=== PATIENT | female | born 1965 | race Caucasian/White ===

== ENCOUNTER 2021-01-02 08:20 | Emergency (ER) | payer OTHER, SELFPAY ==
[2021-01-02 08:42] VITALS: BP 110/80; BP 120/64; PULSE 75; PULSE 79; RESP 16; TEMP 37.2; O2SAT 97; O2SAT 98; BMI 21.6
--- NOTE | 2021-01-02 08:42 | ECG_ITS ---
Test Reason : syncope Blood Pressure : / mmHG Vent. Rate : 072 BPM Atrial Rate : 072 BPM P-R Int : 130 ms QRS Dur : 082 ms QT Int : 394 ms P-R-T Axes : 013 013 022 degrees QTc Int : 431 ms Normal sinus rhythm RSR' or QR pattern in V1 suggests right ventricular conduction delay Otherwise normal ECG No previous ECGs available Referred By: Carrol Wasserman Electronically Signed By:BELINDA GARCIA MD
--- NOTE | 2021-01-02 08:43 | ED_ITS ---
HPI - General Adult General Chief complaint: Syncope Stated complaint: +COVID,WEAK,DIZZY,SYNC EP Time Seen by Provider: 01/02/21 08:34 Source: patient and EMS Mode of arrival: EMS Limitations: no limitations History of Present Illness HPI narrative: Patient comes emergency room complaining of generalized weakness and a syncopal episode. Patient states she was diagnosed with COVID-19 approximately 3 days ago. Patient states that she has been having generalized weakness for several weeks. Patient states that she has been on a diet trying to lose weight, states she lost quite a bit of weight. Patient denies chest pain, no shortness of breath, no palpitations. This morning, patient was trying to take a shower, patient was very weak, lightheaded, passed out. Related Data Allergies Allergy/AdvReac Type Severity Reaction Status Date / Time No Known Allergies Allergy Verified 01/02/21 08:41 Review of Systems Review of Systems: Constitutional : No Weight loss, No Fever, No Chills, No Night Sweats, No Fatigue, No Malaise ENT/Mouth : No Hearing loss, No Ear Pain, No Nasal Congestion, No Sinus Pain, No Hoarseness, No sore throat, No Rhinorrhea, No Swallowing Difficulty Eyes: No Eye Pain, No Swelling, No Redness, No Foreign Body, No Discharge, No Vision Changes Cardiovascular : No Chest Pain, No SOB, No Dyspnea on Exertion, No Orthopnea, No Edema, No Palpitations Respiratory : No Cough, No Sputum, No Wheezing, No Smoke Exposure, No Dyspnea Gastrointestinal : No Nausea, No Vomiting, No Diarrhea, No Constipation, No abdominal Pain, No Hematochezia, No Melena Genitourinary : no irregular bleeding, No Dysuria, No Urinary Frequency, No Hematuria, No Urinary Incontinence, No Urgency, No Flank Pain, No Urinary Flow Changes, No Hesitancy Musculoskeletal : No joint pain, No Myalgias, No Joint Swelling Skin : No Skin Lesions, No rash Neuro : No Weakness, No Numbness, No Paresthesias, complaining of once a couple episodes, dizziness, no headache Psych : No Anxiety/Panic, No Depression, No SI/HI/AH/VH, No Social Issues, Heme/Lymph: No Bruising, No Bleeding,No Lymphadenopathy Endocrine : No Polyuria, No Polydipsia, No Temperature Intolerance [facility] Social History Social History Advance Directives: No Advance Directives Information Provided: No Physical Exam Vital Signs: Vital Signs: Last Vital Signs Temp 99 F 01/02/21 08:42 Pulse 73 01/02/21 11:10 Resp 12 01/02/21 10:13 BP 125/73 01/02/21 11:10 Pulse Ox 98 01/02/21 10:13 Body Mass Index 21.6 Const: Other: Appearance: Alert. Oriented X3. No acute distress. Eyes: Pupils equal, round and reactive to light. ENT: Pharynx normal. Neck: Normal inspection. Neck supple. No lymph nodes noted. No crepitus CVS: Normal heart rate and rhythm. Pulses normal. Normal S1 and S2 Respiratory: No respiratory distress. Breath sounds normal. No Wheezing. No rales Abdomen: Soft and nontender. No rigidity. No distention. good BS x4 Skin: Skin warm and dry. Normal skin color. Normal skin turgor. Extremities: No lower extremity edema. No Lacerations. No Rash Neuro: Oriented X 3. No motor deficit. No sensory deficit. Moving all extermities. No slurred speech. Course Course Course Narrative: Patient feeling much better. Patient's dimer and troponin negative, EKG within normal limits. Orthostatic vitals negative. Medical Decision Making Lab Data Result diagrams: 01/02/21 09:20 01/02/21 09:20 Labs: Lab Results 01/02/21 01/02/21 01/02/21 Range/Units 09:20 09:20 09:20 WBC 3.2 L (4.8-10.8) X10*3/uL RBC 4.10 L (4.20-5.50) X10*6/uL Hgb 11.8 L (12.0-16.0) g/dl Hct 35.6 L (37-47) % MCV 86.8 (80-98) fL MCH 28.8 (27.0-33.0) pg MCHC 33.1 (31.0-35.0) g/dl RDW 13.5 (11.0-16.0) % Plt Count 201 (160-400) X10*3/uL MPV 10.7 (9.4-12.3) fL Immature Gran % (Auto) 0.3 (0.0-0.4) % Neut % (Auto) 66.4 (45-73) % Lymph % (Auto) 22.5 (20-40) % [place] % (Auto) 10.8 (2-11) % Eos % (Auto) 0.0 (0-4) % Baso % (Auto) 0.0 (0-2) % Lymph # (Auto) 0.7 L (1.2-4.9) X10*3/uL [place] # (Auto) 0.3 (0.1-1.2) X10*3/uL Eos # (Auto) 0.0 (0.0-0.4) X10*3/uL Baso # (Auto) 0.0 (0.0-0.2) X10*3/uL Abs Immat Gran (auto) 0.01 (0.00-0.03) X10*3/uL Absolute Neuts (auto) 2.1 (2.0-8.3) X10*3/uL Absolute Nucleated RBC 0.000 (0.0-0.012) X10*3/uL Nucleated RBC % (auto) 0.0 (0.0-0.2) /100WBC D-Dimer < 200 NG/ML Sodium 134 L (135-145) mmol/L Potassium 3.4 (3.3-5.1) mmol/L Chloride 101 (96-108) mmol/L Carbon Dioxide 25 (22-29) mmol/L Anion Gap 11 L (12-20) BUN 8 L (9-16) mg/dL Creatinine 0.63 (0.5-1.4) mg/dL Estim Creat Clear Calc 91.8 Estimated GFR > 60 Random Glucose 116 H (60-115) mg/dL Calcium 8.4 (8.4-10.2) mg/dL Total Bilirubin < 0.2 (0.0-1.0) mg/dL Direct Bilirubin < 0.2 (0.0-0.5) mg/dL AST 23 (5-31) U/L ALT 21 (0-31) U/L Alkaline Phosphatase 62 (39-117) U/L Troponin I High Sens (<3.5-17.0) ng/L Total Protein 6.4 L (6.5-8.0) g/dL Albumin 3.9 (3.5-5.0) g/dL Urine Color Urine Appearance Urine pH (5.0-8.0) Ur Specific [place] (1.005-1.025) Urine Protein (NEG-TRACE) MG/DL Urine Glucose (UA) (NEG) MG/DL Urine Ketones (NEG) MG/DL Urine Blood (NEG) Urine Nitrite (NEG) Ur Leukocyte Esterase (NEG) COVID-19 (JAZZY) (Negative) COVID-19 Clin Com 01/02/21 01/02/21 01/02/21 Range/Units 09:20 09:20 10:12 WBC (4.8-10.8) X10*3/uL RBC (4.20-5.50) X10*6/uL Hgb (12.0-16.0) g/dl Hct (37-47) % MCV (80-98) fL MCH (27.0-33.0) pg MCHC (31.0-35.0) g/dl RDW (11.0-16.0) % Plt Count (160-400) X10*3/uL MPV (9.4-12.3) fL Immature Gran % (Auto) (0.0-0.4) % Neut % (Auto) (45-73) % Lymph % (Auto) (20-40) % [place] % (Auto) (2-11) % Eos % (Auto) (0-4) % Baso % (Auto) (0-2) % Lymph # (Auto) (1.2-4.9) X10*3/uL [place] # (Auto) (0.1-1.2) X10*3/uL Eos # (Auto) (0.0-0.4) X10*3/uL Baso # (Auto) (0.0-0.2) X10*3/uL Abs Immat Gran (auto) (0.00-0.03) X10*3/uL Absolute Neuts (auto) (2.0-8.3) X10*3/uL Absolute Nucleated RBC (0.0-0.012) X10*3/uL Nucleated RBC % (auto) (0.0-0.2) /100WBC D-Dimer NG/ML Sodium (135-145) mmol/L Potassium (3.3-5.1) mmol/L Chloride (96-108) mmol/L Carbon Dioxide (22-29) mmol/L Anion Gap (12-20) BUN (9-16) mg/dL Creatinine (0.5-1.4) mg/dL Estim Creat Clear Calc Estimated GFR Random Glucose (60-115) mg/dL Calcium (8.4-10.2) mg/dL Total Bilirubin (0.0-1.0) mg/dL Direct Bilirubin (0.0-0.5) mg/dL AST (5-31) U/L ALT (0-31) U/L Alkaline Phosphatase (39-117) U/L Troponin I High Sens 3.7 (<3.5-17.0) ng/L Total Protein (6.5-8.0) g/dL Albumin (3.5-5.0) g/dL Urine Color YELLOW Urine Appearance CLEAR Urine pH 6.5 (5.0-8.0) Ur Specific [place] <= 1.005 (1.005-1.025) Urine Protein NEG (NEG-TRACE) MG/DL Urine Glucose (UA) NEG (NEG) MG/DL Urine Ketones NEG (NEG) MG/DL Urine Blood NEG (NEG) Urine Nitrite NEG (NEG) Ur Leukocyte Esterase NEG (NEG) COVID-19 (JAZZY) Positive A (Negative) COVID-19 Clin Com See Note Discharge Plan Discharge Clinical Impression: Vasovagal syncope Patient Disposition: Home, Self-Care Instructions: Syncope (ED) Additional Instructions: Please follow-up with your primary care physician tomorrow. If you have any worsening or new symptoms, please return to the emergency room or call 911
[2021-01-02 08:45] VITALS: O2SAT 97
[2021-01-02 09:29] LABS: MANUAL DIFF FLAG NO
[2021-01-02 09:31] LABS: Hematocrit 35.6 % (37-47); Hemoglobin 11.8 g/dl (12.0-16.0); Imm Gran Abs Auto 0.01 X10*3/uL (0.00-0.03); Imm Gran Pct Auto 0.3 % (0.0-0.4); Lymphocytes Absolute Auto 0.7 X10*3/uL (1.2-4.9); Lymphocytes Percent Auto 22.5 % (20-40); Mean Corpuscular HGB Conc 33.1 g/dl (31.0-35.0); Mean Corpuscular Hemoglobin 28.8 pg (27.0-33.0); Mean Corpuscular Volume 86.8 fL (80-98); Mean Platelet Volume 10.7 fL (9.4-12.3); Monocytes Absolute Auto 0.3 X10*3/uL (0.1-1.2); Monocytes Percent Auto 10.8 % (2-11); Neutrophils Absolute Auto 2.1 X10*3/uL (2.0-8.3); Neutrophils Percent Auto 66.4 % (45-73); Platelet Count 201 X10*3/uL (160-400); Red Cell Distribution Width 13.5 % (11.0-16.0); White Blood Count 3.2 X10*3/uL (4.8-10.8)
[2021-01-02 09:52] LABS: Alanine Aminotransferase 21 U/L (0-31); Albumin Level 3.9 g/dL (3.5-5.0); Alkaline Phosphatase 62 U/L (39-117); Anion Gap 11 (12-20); Aspartate Amino Transferase 23 U/L (5-31); Bilirubin Direct < 0.2 mg/dL (0.0-0.5); Bilirubin Total < 0.2 mg/dL (0.0-1.0); Blood Urea Nitrogen 8 mg/dL (9-16); Calcium 8.4 mg/dL (8.4-10.2); Carbon Dioxide 25 mmol/L (22-29); Chloride 101 mmol/L (96-108); Creatinine Clr Calc Pharmacy 91.8; Estimated Glomerular Filt Rate > 60; Glucose Random 116 mg/dL (60-115); Potassium 3.4 mmol/L (3.3-5.1); Sodium 134 mmol/L (135-145); Total Protein 6.4 g/dL (6.5-8.0)
[2021-01-02 09:59] LABS: COVID-19 Test Positive (Negative); IDNOW Serial# 9DD0AD1C; Troponin-I High Sensitivity 3.7 ng/L (<3.5-17.0)
[2021-01-02 10:13] VITALS: BP 141/77; PULSE 72; RESP 12; O2SAT 98
[2021-01-02 10:22] LABS: D Dimer < 200 NG/ML
[2021-01-02 10:27] LABS: Appearance Urine CLEAR; Color Urine YELLOW; Glucose Urine UA NEG (NEG); Leukocyte Esterase Urine NEG (NEG); Nitrite Urine NEG (NEG); PH 6.5 (5.0-8.0); Specific Gravity - Urine <= 1.005 (1.005-1.025); Urine Blood NEG (NEG); Urine Ketones NEG (NEG); Urine Protein NEG (NEG-TRACE)
[2021-01-02 11:05] VITALS: BP 134/67; PULSE 67
[2021-01-02 11:08] VITALS: BP 135/72; PULSE 72
[2021-01-02 11:10] VITALS: BP 125/73; PULSE 73
== END 2021-01-02 11:32 | disposition home or self-care (01) ==
PROVIDERS: Emergency Provider Emergency Medicine
DX: U07.1 COVID-19 (principal); R55 Syncope and collapse
CPT/HCPCS: 36415; 80048; 80076; 81003; 84484; 85025; 85379; 87635; 93005; 99283; 99285

== ENCOUNTER → 2022-08-26 14:59 | Outpatient (REF) | payer OTHER, SELFPAY ==
--- NOTE | ~2022-08-26 | US_ITS ---
EXAMINATION: US RETROPERITONEAL LIMITED (RENAL ONLY) CLINICAL INFORMATION: Cyst of kidney, acquired. COMPARISON: None available. TECHNIQUE: Real-time imaging of the kidneys. FINDINGS: RIGHT KIDNEY: 11.7 x 6.1 x 5.5 cm (SAG x AP x TRV). The kidney is normal in size, contour, and echogenicity. Renal cortical thickness is normal. No focal parenchymal lesions or hydronephrosis. There are tiny nonobstructing calculi in the lower pole measured 0.5 x 0.3 x 0.5 cm in interpolar region measures 0.3 x 0.2 x 0.2 cm in the upper pole 0.3 x 0.2 x 0.3 cm. LEFT KIDNEY: 11.5 x 5.1 x 6.0 cm (SAG x AP x TRV). The kidney is normal in size, contour, and echogenicity. Renal cortical thickness is normal. No focal parenchymal lesions. There is mild hydronephrosis. There is interpolar 0.3 x 0.3 x 0.4 cm stone US/US renal BI IMPRESSION: Bilateral nephrolithiasis and mild hydronephrosis on the left.
--- NOTE | 2022-08-26 15:03 | CA_ITS ---
Transthoracic Echocardiogram Patient (Last, First, Middle): Maria D Dutton, Gender: Female Date of : 1965 Age: 57 Procedure Date: 08/26/2022 Procedure Type: Transthoracic Echocardiogram Location: OP Height: 157.48 cm Weight: 67.59 kg BSA: 1.69 m2 Heart Rate: 89 bpm BP: 120 / 70 mmHg Funnel Coater: SB Referring MD: Uriel Mclaughlin [facility] Symptoms: R01.1 - Cardiac murmur, unspecified Study Quality: Adequate ECG Rhythm: Sinus Conclusions: - The left ventricular systolic function is normal. The calculated ejection fraction is 65% by biplane method. - No obvious valvular pathology seen on this study. Findings Left Ventricle Normal left ventricular cavity size. There is normal left ventricular wall thickness. The left ventricular systolic function is normal. The calculated ejection fraction is 65% by biplane method. There is no evidence of regional wall motion abnormalities. Diastolic function is normal for age. LV peak GLS -18.4%. Right Ventricle Normal right ventricular cavity size and systolic function. Atria Both atria are normal in size. Aortic Valve There is a normal trileaflet aortic valve. There is mild calcification of the aortic valve. There is no aortic valve stenosis. There is no aortic valve regurgitation. Mitral Valve The mitral valve appears normal. There is no mitral valve regurgitation. There is no mitral valve stenosis. Pulmonic Valve The pulmonic valve is likely normal. Tricuspid Valve Normal tricuspid valve structure. There is mild tricuspid valve regurgitation. There is no evidence of pulmonary hypertension. Great Vessels The asc aorta is normal in size. Venous The inferior vena cava is normal in size and collapses greater than 50% with inspiration. Pericardium/Pleural There is no evidence of pericardial effusion. Prior Study Comparison No prior study available for comparison. Recommendations, Care & Conclusions No obvious valvular pathology seen on this study. Measurements 2D Linear Measurements IVSd: 0.90 0.6-0.9/0.6-1.0 cm LVIDd: 5.09 3.9-5.3/4.2-5.9 cm LVIDd Index: 3.01 2.4-3.2/2.2-3.1 cm/m2 LVIDs: 2.86 2.0-3.6 cm LVPWd: 0.71 0.7-1.1 cm LA Diam: 3.40 2.7-3.8/3.0-4.0 cm LAIDs Index: 2.01 1.5-2.3 cm/m2 LV Mass: 176.21 67-162/88-224 g LV Mass Index: 104.26 43-95/49-115 g/m2 LVOT Diam: 1.90 3.0+(-)1.3 cm 2D Systolic Function EF 4C: 62.90 >55% EF 2C: 67.20 >55% EF BiP: 64.80 >55% Mitral Valve MV Pk E: 0.97 MV PK A: 0.86 MV Decel Time: 163.00 E/A: 1.10 E'Lateral: 8.70 E'Medial: 8.38 E/E' Med: 11.60 E/E' Lat: 11.10 PHT: 48.00 MVA PHT: 4.58 Decel [place]: 5.95 Aortic Valve AoV Pk Hilario: 1.79 AoV Mn Hilario: 1.17 AoV VTI: 0.40 AoV Pk Grad: 13.00 Aov Mn Grad: 7.00 REYES Cont.VTI: 1.67 LVOT LVOT Pk Hilario: 1.07 LVOT Mn Hilario: 0.71 LVOT VTI: 0.24 LVOT Pk Grad: 5.00 LVOT Mn Grad: 3.00 LVOT Diam: 1.90 LVOT Area: 2.84 Diastolic Function MV Pk E: 0.97 MV Pk A: 0.86 E/A: 1.10 E'Medial: 8.38 E/E' Med: 11.60 E' Laterial: 8.70 E/E' Lat: 11.10 Right Ventricle TAPSE (mm): 25.60 TVS' Hilario: 14.90 Tricuspid Valve TR Pk Hilario: 2.63 TR Pk Grad: 28.00 RA Press: 3.00 RVSP: 31.00 Great Vessels Aorta Sinus of Valsalva: 2.60 2.0-3.5 cm Ao Asc: 2.80 2.1-3.4 cm Pulmonary Valve PV Pk Hilario: 1.16 Peak PV Grad: 5.00 Updated in Other Vendor System with Status of Final Deonte Brandt MD electronically signed on 08/28/2022 2:01:22 PM with status of Final
== END ==
LOC: HO.CARD 14:59
PROVIDERS: PCP Nurse Practitioner Family; Visit Provider Nurse Practitioner Family
DX: R01.1 Cardiac murmur, unspecified (principal); N28.1 Cyst of kidney, acquired
CPT/HCPCS: 76775; 93306; 93356

== ENCOUNTER → 2022-09-07 07:55 | Outpatient (BNVA) | payer OTHER, SELFPAY | PROVIDERS: PCP Nurse Practitioner Family; Visit Provider Nurse Practitioner Family ==

== ENCOUNTER 2022-09-07 09:07 | Outpatient (REF) | payer OTHER, SELFPAY | END 2022-09-07 09:08 | disposition home or self-care (01) | LOC: HO.HMGCLDS 09:07 | PROVIDERS: PCP Nurse Practitioner Family; Visit Provider Nurse Practitioner Family | DX: Z00.00 Encounter for general adult medical examination without abnormal findings (principal); Z13.220 Encounter for screening for lipoid disorders; Z13.29 Encounter for screening for other suspected endocrine disorder | CPT/HCPCS: 36415; 80053; 80061; 81003; 84443; 85025 ==

== ENCOUNTER 2022-09-22 15:02 | Outpatient (AMB) | payer OTHER, SELFPAY ==
--- NOTE | 2022-09-22 15:05 | MHC.OFFVIS ---
Intake Intake Visit Reasons: Unspecified hydronephrosis Intake Note: New Patient presents for initial visit hydronephrosis Urology Medication: none Blood Thinner: none Facing Slitter Required: No Accompanied by: Self / Same As Patient Allergies acetaminophen [From Percocet] Adverse Reaction (Mild, Verified 09/24/22 10:23) upset stomach oxycodone [From Percocet] Adverse Reaction (Mild, Verified 09/24/22 10:23) upset stomach Medication List - Last Reconciled 09/24/22 by RUBA Bustamante bisacodyl (Dulcolax (bisacodyl)) 10 mg (2 x 5 mg) PO ONCE 1 day docusate sodium 100 mg PO DAILY polyethylene glycol 3350 (Miralax) 238 grams PO ONCE pyridoxine (vitamin B6) 100 mg PO DAILY 90 days HPI HPI Comments History of Present Illness Details Maria D is a very pleasant 57-year-old female patient of Dr. Glaser. She presents to the office today as a new patient for nephrolithiasis and renal cyst. In discussion with the patient she reports to be doing and feeling well. She reports following up with her PCP for her longstanding history of renal cyst at which time a ultrasound was ordered for further assessment evaluation. These results were reviewed with the patient today. Right kidney with no lesions or hydronephrosis noted. There are nonobstructing calculi in the lower pole measuring 5 mm, 2 mm, and 3 mm. Left kidney with no lesions. There is mild hydronephrosis. There is a 4 mm nonobstructing stone. When asked patient denies any previous history of nephrolithiasis. Discussed at length potential causes for nephrolithiasis as well as hydronephrosis. When asked patient denies any issues with her urination. She denies urinary urgency, urinary frequency, incontinence, nocturia, hematuria, dysuria, foul smelling urine, changes to urinary stream, flank pain, fever, and or chills. She is happy with her current voiding parameters. BUN 12/26--11, 09/27--13 Creatinine 12/26--8, 09/27--0.66 In office urinalysis results reviewed with the patient today. When asked patient reports to be drinking plenty of water daily. [facility] Surgical History Hx of cholecystectomy Hx of colonoscopy Family History Brother Mental health disorder Social History Housing: House Patient Tobacco Use Status: Former Tobacco user Quit Date: 21 years ago e-Cigarette/Vaping Use: Never Used Second Hand Smoke Exposure: No service: No Current occupational status: unemployed Cognitive needs: No Hearing needs: No Vision needs: No Review of Systems Const All systems reviewed & are unremarkable except as noted in HPI and below Reports no additional complaints Eyes Reports no additional complaints ENT Reports no additional complaints Card Reports no additional complaints Resp Reports no additional complaints GI Reports no additional complaints Reports as per HPI Musc Reports no additional complaints Neuro Reports no additional complaints Psych Reports no additional complaints Endo Reports no additional complaints Jayjay/Lymph Reports no additional complaints Aller/Immun Reports no additional complaints Physical Exam Const General: cooperative, healthy appearing, comfortable, no acute distress, well developed, alert and awake Orientation/consciousness: patient oriented x3 Limitations: no limitations HEENT Head: Yes normal to inspection, Yes normocephalic and Yes atraumatic Ears: hearing grossly normal bilaterally Eyes General: appearance normal, both eyes and all related structures Neck Neck: Yes normal visual inspection and Yes trachea midline Chest Chest palpation & inspection: normal inspection of the chest Resp Effort & Inspection: normal respiratory effort and able to speak in complete sentences Cardio Rate: regular rate GI Inspection: Yes normal to inspection General: Yes no CVA tenderness Back/Spine/Pelvis Back: no CVA tenderness Skin General skin exam: no rashes or lesions noted Neuro General: patient oriented x3 Extrem General: Yes normal to inspection Psych Appearance: grossly normal and well kempt Mental Status: mental status grossly normal Speech and movement: Normal speech and movement present and Clear speech present Affect: normal affect Attitude: cooperative Thought process: Normal thought process present Thought content: Normal thought content present Insight: Good insight present (Psych) Judgement: Good judgement present (Psych) Results AMB Urinalysis, Automated UA Leukoctes 0 Melissa/uL Last Edit by [employer] Link on 09/22/22 15:28 UA Nitrite Negative Last Edit by [employer] on 09/22/22 15:28 UA Urobilinogen 0.2 mg/dL Last Edit by [employer] Link on 09/22/22 15:28 UA Protein 0 mg/dL Last Edit by [employer] Link on 09/22/22 15:28 UA pH 5.5 Last Edit by [employer] Link on 09/22/22 15:28 UA Blood 25 Elvin/uL Last Edit by [employer] Link on 09/22/22 15:28 UA Specific [place] 1.030 Last Edit by [employer] Link on 09/22/22 15:28 UA Ketone Negative Last Edit by [employer] Link on 09/22/22 15:28 UA Bilirubin 0 mg/dL Last Edit by [employer] Link on 09/22/22 15:28 UA Glucose 0 mg/dL Last Edit by [employer] Link on 09/22/22 15:28 Results Reviewed Results Reviewed: Laboratory Last Values Urine pH (Auto) 5.5 09/22/22 15:10 Specific [place] (Auto) 1.030 09/22/22 15:10 Urine Protein (Auto) 0 mg/dL 09/22/22 15:10 Glucose (UA)(Auto) 0 mg/dL 09/22/22 15:10 Urine Ketones (Auto) Negative 09/22/22 15:10 Urine Blood (Auto) 25 Elvin/uL 09/22/22 15:10 Urine Nitrite (Auto) Negative 09/22/22 15:10 Urine Bilirubin (Auto) 0 mg/dL 09/22/22 15:10 Urine Urobilinogen (Auto) 0.2 mg/dL 09/22/22 15:10 Leukocyte Esterase (Auto) 0 Melissa/uL 09/22/22 15:10 Date of Service: 08/26/22 EXAMINATION: US RETROPERITONEAL LIMITED (RENAL ONLY) FINDINGS: RIGHT KIDNEY: 11.7 x 6.1 x 5.5 cm (SAG x AP x TRV). The kidney is normal in size, contour, and echogenicity. Renal cortical thickness is normal. No focal parenchymal lesions or hydronephrosis. There are tiny nonobstructing calculi in the lower pole measured 0.5 x 0.3 x 0.5 cm in interpolar region measures 0.3 x 0.2 x 0.2 cm in the upper pole 0.3 x 0.2 x 0.3 cm. LEFT KIDNEY: 11.5 x 5.1 x 6.0 cm (SAG x AP x TRV). The kidney is normal in size, contour, and echogenicity. Renal cortical thickness is normal. No focal parenchymal lesions. There is mild hydronephrosis. There is interpolar 0.3 x 0.3 x 0.4 cm stone IMPRESSION: Bilateral nephrolithiasis and mild hydronephrosis on the left. Assessment & Plan Assessment & Plan (1) Bilateral renal stones: Code(s): N20.0 - Calculus of kidney (2) Hydronephrosis determined by ultrasound: Code(s): N13.30 - Unspecified hydronephrosis Plan In office urinalysis results reviewed with the patient today; as noted above. Recent renal imaging results reviewed with the patient today. Discussed at length potential causes for nephrolithiasis. Discussed obtaining 24 hour urine and labs (magnesium, phosphorus, BMP, calcium, PTH, uric acid, andvitamin-D) for further assessment evaluation Discussed at length potential causes for mild hydronephrosis noted via ultrasound discussed further workup with nuclear renal scan versus surveillance monitoring Discussed the importance of drinking plenty of water daily. Educated instructed to add 1 oz of lemon juice to water daily. Start vitamin B6 as discussed and prescribed. Patient reports to be happy with current voiding parameters Follow-up in 3-4 months with 24 hour urine and labs to be completed prior; or sooner with any issues, concerns, and or questions. Orders: Orders Magnesium 09/22/22 N20.0 - Calculus of kidney Phosphorus 09/22/22 Z87.442 - Personal history of urinary calculi Basic Metabolic Panel 09/22/22 N20.0 - Calculus of kidney Calcium 09/22/22 N20.0 - Calculus of kidney PTHI 09/22/22 N20.0 - Calculus of kidney Uric Acid 09/22/22 N20.0 - Calculus of kidney Vitamin D 25-OH Total 09/22/22 N20.0 - Calculus of kidney URORISK 09/22/22 N20.0 - Calculus of kidney AMB Urinalysis Automated 09/22/22 Z13.9 - Encounter for screening, unspecified Medications: New pyridoxine (vitamin B6) 100 mg PO DAILY 90 days 90 tabs 1RF N20.0 - Calculus of kidney Patient Instructions: The patient had an opportunity to ask questions regarding the treatment plan. All questions were answered. Physical exam, labs, and imaging were discussed and reviewed in detail. As well as risks, benefits, and discussion of treatment choices. No major barriers to understanding were identified. The patient expressed understanding and agreement with the above treatment plan. The patient was made aware they should contact our office by phone for worsening of their current condition, the appearance of new symptoms, or with any questions or concerns. Compliance is encouraged with any medications and follow up testing that is ordered. It is a privilege to be allowed the opportunity to participate in? your urological care.? Again, if you have any questions or concerns If you have any questions or concerns please do not hesitate to contact me. The office is [phone]. This note is constructed using voice recognition software. While every effort has been made to ensure accuracy turn down man errors may have been included. Yours sincerely, RUBA Bustamante Coding Level of Care Code New Pt Level 4 (54477) Diagnoses Bilateral renal stones N20.0 Hydronephrosis determined by ultrasound N13.30
== END 2022-09-22 16:35 | disposition home or self-care (01) ==
PROVIDERS: PCP Nurse Practitioner Family; Visit Provider Nurse Practitioner Family
DX: N20.0 Calculus of kidney (principal); N13.30 Unspecified hydronephrosis
CPT/HCPCS: 99204

== ENCOUNTER → 2022-09-22 15:02 | Outpatient (BNVA) | payer OTHER, SELFPAY | PROVIDERS: PCP Nurse Practitioner Family; Visit Provider Nurse Practitioner Family ==

== ENCOUNTER 2022-10-06 16:23 | Outpatient (REF) | payer OTHER, SELFPAY ==
--- NOTE | ~2022-10-06 | MM_ITS ---
EXAMINATION: MM SCREENING DIGITAL BREAST TOMOSYNTHESIS, BILATERAL CLINICAL INFORMATION: Screening. Asymptomatic. The lifetime risk of breast cancer based on the Tyrer-Cuzick Model is 7.6%. COMPARISON: Mammography: 05/14/2009, 08/07/2008 on screen films. TECHNIQUE: Digital breast tomosynthesis is performed in both the craniocaudal and mediolateral oblique views along with computer-aided detection (CAD). Synthesized 2D images are generated from the tomosynthesis. FINDINGS: The breasts are heterogeneously dense, which may obscure small masses (ACR BI-RADS breast composition Category c). There are no suspicious masses, suspicious grouped calcifications, or areas of architectural distortion. The parenchymal pattern is stable from prior exams. There is a stable low-density circumscribed nodule in the inferior far medial right breast, middle one third. MM/MM tomosynthesis screening BI IMPRESSION: No mammographic evidence of malignancy. ASSESSMENT: BI-RADS BI-RADS 2 - Benign Findings RECOMMENDATION: Routine annual mammography screening. 1 year F/U This examination should not preclude the clinical evaluation of a suspicious palpable abnormality. This patient's information was entered into a reminder system with a target due date for their next mammogram.
== END 2022-10-06 16:24 | disposition home or self-care (01) ==
LOC: HO.MAMMO 16:23
PROVIDERS: PCP Nurse Practitioner Family; Visit Provider Nurse Practitioner Family
DX: Z12.31 Encounter for screening mammogram for malignant neoplasm of breast (principal)
CPT/HCPCS: 77063; 77067

== ENCOUNTER → 2022-10-06 16:30 | Outpatient (BNV) | payer OTHER, SELFPAY | PROVIDERS: PCP Nurse Practitioner Family; Visit Provider Radiology Diagnostic Radiology | DX: Z12.31 Encounter for screening mammogram for malignant neoplasm of breast (principal) | CPT/HCPCS: 77063; 77067 ==

== ENCOUNTER 2023-02-08 13:55 | Outpatient (AMB) | payer OTHER, SELFPAY ==
--- NOTE | 2023-02-08 14:02 | A.OFFPC_ITS ---
Vital Signs 02/08/23 14:07 Height 5 ft 5 in Weight 159 lb BMI 26.5 BP 122/70 Blood Pressure Location Rt brachial Position Sitting Pulse 60 Pulse Source Pulse Oximeter Pulse Oximetry (%) 98 Oxygen Delivery Method Room Air Intake Visit Reasons: 6 Month follow up Intake Note: Pt is here today for her 6 mo. f/u Allergies acetaminophen [From Percocet] Adverse Reaction (Mild, Verified 02/08/23 14:03) upset stomach oxycodone [From Percocet] Adverse Reaction (Mild, Verified 02/08/23 14:03) upset stomach Tobacco use date assessed: 02/08/23 Dental Screening Dental Screen Date: 02/08/23 Did you have a dental visit in the last 12 months?: No Was dental information given to patient?: No HPI 6 Month follow up HPI Details Hx of renal stones. She is following up with urology. US showed bilateral nephrolithiasis and mild hydronephrosis on the left. Denies fever, chills, hematuria, and flank pain. PFSH Surgical History Hx of cholecystectomy Hx of colonoscopy Family History (Updated 02/08/23 @ 14:12 by Haily Luna [facility]) Brother Mental health disorder Social History Housing: House Patient Tobacco Use Status: Former Tobacco user Quit Date: 21 years ago e-Cigarette/Vaping Use: Never Used Second Hand Smoke Exposure: No service: No Current occupational status: unemployed Cognitive needs: No Hearing needs: No Vision needs: Yes Questionnaire Thrive Questionnaire Date Thrive assessed: 08/05/22 VITO-7 AMB Questionnaire VITO-7 Date VITO - 7 assessed: 08/05/22 Source: Developed by Drs. Constantine Clemente, Noemí Mcintyre, Eric Pendleton and colleagues, with an educational phillip from [employer]. Review of Systems Const Reports as per HPI Physical exam (Primary Care) Vital Signs: Last Vital Signs Pulse 60 02/08/23 14:07 BP 122/70 02/08/23 14:07 Pulse Ox 98 02/08/23 14:07 Oxygen Delivery Method Room Air 02/08/23 14:07 BMI result Body Mass Index 26.5 Tobacco/Smoking Status: Tobacco use Status Tobacco use date assessed 02/08/23 02/08/23 14:05 Patient Tobacco Use Status Former Tobacco user 02/08/23 14:05 e-Cigarette/Vaping Use Never Used 02/08/23 14:05 Thrive Assessment: Date of Thrive Assessment Date Thrive assessed 08/05/22 02/08/23 14:05 Const General: cooperative Orientation/consciousness: patient oriented x3 Resp Effort & Inspection: normal respiratory effort Auscultation: clear to auscultation bilaterally Cardio Rate: regular rate Rhythm: regular rhythm Heart sounds: S1 normal heart sound present, S2 normal heart sound present and Murmur heart sound present systolic Neuro General: patient oriented x3 Psych Appearance: grossly normal Mental Status: mental status grossly normal Speech and movement: Normal speech and movement present Affect: normal affect Attitude: cooperative Thought process: Normal thought process present Thought content: Normal thought content present Insight: Good insight present (Psych) Judgement: Good judgement present (Psych) Assessment and Plan Assessment & Plan (1) Bilateral renal stones: Code(s): N20.0 - Calculus of kidney Plan The patient agreed to the use of a biomedical analytical scientist for this encounter. Scribed for URBA Spence by Ciera Gray biomedical analytical scientist, on 02/08/2023 at 14:20 EST. Coding Level of Care Code Est Pt Level 3 (77937) Diagnoses Bilateral renal stones N20.0
[2023-02-08 14:07] VITALS: BP 122/70; PULSE 60; O2SAT 98; BMI 26.5
== END 2023-02-08 14:30 | disposition home or self-care (01) ==
PROVIDERS: Visit Provider Nurse Practitioner Family
DX: N20.0 Calculus of kidney (principal)
CPT/HCPCS: 99213

== ENCOUNTER 2023-08-04 14:40 | Outpatient (REF) | payer OTHER, SELFPAY ==
[2023-08-12 01:39] LABS: HPV mRNA E6/E7 rflx Not Detected (Not Detected)
== END 2023-08-04 14:41 | disposition home or self-care (01) ==
LOC: HO.LNP 14:40
PROVIDERS: PCP Nurse Practitioner Family; Visit Provider Advanced Practice Midwife
DX: Z01.419 Encounter for gynecological examination (general) (routine) without abnormal findings (principal); Z11.51 Encounter for screening for human papillomavirus (HPV)
CPT/HCPCS: 87624; 88142

== ENCOUNTER 2023-08-04 14:40 | Outpatient (AMB) | payer OTHER, SELFPAY ==
--- NOTE | 2023-08-04 15:08 | MHC.OFFVIS ---
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 She is doing well with no concerns: vaginal dryness. LMP 10/2022. Had hot flashes now resolved. Attempting to eat a healthy diet with calcium and vitamin D and stays active with exercise. Currently sexually active w/. Denies any vaginal irritation. STI testing offered; she declined. Last pap smear; unknown date, approximately 20 years ago. Last mammogram; 2022. Colonoscopy is due in September. Denies any family history of breast, ovarian or colon cancer. PFSH Surgical History Hx of ovarian cystectomy Hx of cholecystectomy Hx of colonoscopy Family History Brother Mental health disorder Social History Housing: House Patient Tobacco Use Status: Former Tobacco user Quit Date: 21 years ago e-Cigarette/Vaping Use: Never Used Second Hand Smoke Exposure: No service: No Current occupational status: unemployed Cognitive needs: No Hearing needs: No Vision needs: Yes Female Reproductive History Menstrual Age of Menarche: 12 control method: none Total pregnancies: 4 Full term: 2 Number of Living Children: 2 Ab spontaneous: 2 Date of Mammogram: 10/06/22 Review of Systems Const All systems reviewed & are unremarkable except as noted in HPI and below Reports as per HPI Eyes Reports no additional complaints ENT Reports no additional complaints Card Reports no additional complaints Resp Reports no additional complaints GI Reports as per HPI and Reports no additional complaints Reports as per HPI Musc Reports no additional complaints Skin/Breast Reports as per HPI Neuro Reports no additional complaints Psych Reports no additional complaints Endo Reports no additional complaints Jayjay/Lymph Reports no additional complaints Aller/Immun Reports no additional complaints Physical Exam Vital Signs: Last Vital Signs BP 138/90 H 08/04/23 15:09 BMI result Body Mass Index 27.6 Const General: cooperative, healthy appearing, no acute distress, well developed and alert Orientation/consciousness: patient oriented x3 HEENT Head: Yes normal to inspection Eyes General: appearance normal, both eyes and all related structures Neck Neck: Yes normal visual inspection Thyroid: Thyroid normal Chest Chest palpation & inspection: normal inspection of the chest and other (no puckering, dimpling, peau de orange, retraction, discharge, masses) Breast/axilla inspection: normal inspection of the breasts Breast/axilla palpation: normal palpation of the breasts Resp Effort & Inspection: normal respiratory effort GI Inspection: Yes normal to inspection and Yes scar (Right upper quadrant, and low pelvic transverse) Palpation (GI): Soft to palpation Rectal Exam - Female: deferred General: Yes bladder normal to palpation External Female Exam: normal external appearance and normal appearance of the urethra Speculum Exam - Vagina: normal appearance of the vagina, normal palpation and normal vaginal discharge Speculum Exam - Cervix: normal appearance of the cervix and normal palpation Bimanual exam- vagina & uterus: normal bimanual exam, normal palpation, bladder normal to palpation, normal palpation, non-tender and enlarged (Displaced upwards) Bimanual Exam- Adnexa, other: no masses Skin General skin exam: no rashes or lesions noted Rashes: no rashes Neuro General: patient oriented x3 Cognition (Neuro): normal cognition Extrem General: Yes normal to inspection Psych Attitude: cooperative Thought process: Normal thought process present Assessment & Plan Assessment & Plan (1) Encounter for well woman exam with routine gynecological exam: Code(s): Z01.419 - Encounter for gynecological examination (general) (routine) without abnormal findings Category: Medical Plan: Discussed: Current recommendations for pap smears per ASCCP guidelines. Breast awareness, periodic self breast exams and yearly mammogram. Maintain a healthy lifestyle, well balanced diet including Calcium 1,200 mg and Vitamin D 600 IU daily, and routine exercise. Menopause verses perimenopause. Menopause is definitive of 1 year of no menses or 12 months in succession. Report any abnormal uterine bleeding in example prolonged episodes, or short intervals less than 21 days. Enlarged fibroid, recommended pelvic ultrasound. Plan follow up ultrasound for test results in person. Patient verbalizes understanding and agrees to the plan of care. She was given opportunity to ask questions and all questions were answered to the best of my ability. 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 This note is constructed using voice recognition software. While every effort has been made to ensure accuracy, floor care technician errors may have been included. Orders: Orders Pap Smear Today Z12.4 - Encounter for screening for malignant neoplasm of cervix US pelvic and transvaginal Today N88.8 - Other specified noninflammatory disorders of cervix uteri Coding Level of Care Code New Pt Prev Care 40-64y(33312) Diagnoses Encounter for well woman exam with routine gynecological exam Z01.419
[2023-08-04 15:09] VITALS: BP 138/90; BMI 27.6
== END 2023-08-04 15:48 | disposition home or self-care (01) ==
PROVIDERS: PCP Nurse Practitioner Family; Visit Provider Advanced Practice Midwife
DX: Z01.419 Encounter for gynecological examination (general) (routine) without abnormal findings (principal)
CPT/HCPCS: 99386

== ENCOUNTER 2023-08-12 15:54 | Outpatient (AMB) | payer OTHER, SELFPAY ==
--- NOTE | 2023-08-12 15:59 | MHC.PC.OV ---
Vital Signs 08/12/23 16:02 08/12/23 16:52 Height 5 ft 5 in Weight 164 lb BMI 27.3 BP 140/96 H 130/84 Blood Pressure Location Lt brachial Rt brachial Position Sitting Sitting Pulse 67 Pulse Source Pulse Oximeter Pulse Oximetry (%) 98 Oxygen Delivery Method Room Air Intake Visit Reasons: Annual Intake Note: patient here for physical exam. Pap: 2023 Mammo:2022 Allergies acetaminophen [From Percocet] Adverse Reaction (Mild, Verified 08/12/23 16:41) upset stomach oxycodone [From Percocet] Adverse Reaction (Mild, Verified 08/12/23 16:41) upset stomach Medication List - Last Reconciled 08/12/23 by JUMA Solorzano-FATOU cholecalciferol (vitamin D3) 25 mcg PO DAILY coenzyme Q10 (Chew Q) 600 mg PO DAILY folic acid 1 mg PO DAILY magnesium citrate 200 mg PO BID omega [id number]-[id number]-jwx-fish oil 60-90-500 mg (Fish Oil) 1 cap PO DAILY potassium citrate mg PO vitamin B complex 1 cap PO DAILY Tobacco use date assessed: 08/12/23 Dental Screening Dental Screen Date: 08/12/23 Did you have a dental visit in the last 12 months?: No Did you have a dental problem in the last 6 months where you did not have access to dental care?: No Was dental information given to patient?: No HPI Annual HPI Details Pt is here for a PE. Will order labs. Colon screen is scheduled. Mammo is scheduled. 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 colonoscopy is up to date [facility] Surgical History Hx of ovarian cystectomy Hx of cholecystectomy Hx of colonoscopy Family History Brother Mental health disorder Social History Housing: House Patient Tobacco Use Status: Former Tobacco user e-Cigarette/Vaping Use: Never Used Second Hand Smoke Exposure: No service: No Current occupational status: unemployed Cognitive needs: No Hearing needs: No Vision needs: Yes Female Reproductive History Menstrual Age of Menarche: 12 Questionnaire PHQ-9 Over the last 2 weeks, how often have you been bothered by any of the following problems? 1. Little interest or pleasure in doing things: not at all 2. Feeling down, depressed, or hopeless: not at all 3. Trouble falling or staying asleep, or sleeping too much: not at all 4. Feeling tired or having little energy: not at all 5. Poor appetite or overeating: not at all 6. Feeling bad about yourself - or that you are a failure or have let yourself or your family down: not at all 7. Trouble concentrating on things, such as reading the newspaper or watching television: not at all 8. Moving or speaking so slowly that other people could have noticed. Or the opposite - being so fidgety or restless that you have been moving around a lot more than usual: not at all 9. Thoughts that you would be better off or of hurting yourself in some way: not at all Total score: 0 Depression Screening Interpretation: Negative Depression Screening Done: Yes 58382 - PHQ-9 Billing: Yes Source: Developed by Drs. Constantine Clemente, Noemí Mcintyre, Eric Pendleton and colleagues, with an educational phillip from [employer]. Thrive Questionnaire Date Thrive assessed: 08/12/23 I am a: Patient What is your living situation today?: I have a steady place to live Within the past 12 months, did the food you bought not last and you didn't have the money to get more?: Never true Within the past 12 months, did you worry whether your food would run out before you got money to buy more?: Never true Do you have trouble paying for medicines?: No Do you have trouble getting transportation to medical appointments?: No Do you have trouble paying your heating and electricity bill?: No Do you have trouble taking care of your child, family member or friend?: No Do you have trouble with day-to-day activities such as bathing, preparing meals, shopping, managing finances, etc.?: No Are you currently unemployed and looking for a job?: No Are you interested in more education?: No Currently or been in a relationship where the following occur: I choose not to answer this question THRIVE Score: 0 AUDIT C Alcohol Use Questionnaire (AUDIT-C) 1. How often do you have a drink containing alcohol?: Never 3. How often do you have six or more drinks on one occasion?: Never Total Score: 0 Score Reviewed/Action Taken: No VITO-7 AMB Questionnaire VITO-7 Date VITO - 7 assessed: 08/12/23 Feeling nervous, anxious, or on edge: 1 = Several days Not being able to stop or control worryin = Not at all Worrying too much about different things: 0 = Not at all Trouble relaxin = Not at all Being so restless that it is hard to sit still: 0 = Not at all Becoming easily annoyed or irritable: 0 = Not at all Feeling afraid as if something awful might happen: 0 = Not at all Total VITO-7 score (0-4 normal; 5-9 mild; 10-14 moderate; 15-21 severe): 1 Source: Developed by Drs. Constantine Clemente, Noemí Mcintyre, Eric Pendleton and colleagues, with an educational phillip from [employer]. VITO-7 Assessment Billing VITO-7 Assessment Tool: VITO-7 Assessment 87864 Review of Systems Const Denies chills and Denies fever(s) Eyes Denies blurry vision ENT Denies vertigo, Denies dizziness and Denies sore throat Card Denies chest pain at rest, Denies chest pain with activity, Denies diaphoresis, Denies dyspnea and Denies dyspnea on exertion Resp Denies cough, Denies dyspnea, Denies dyspnea on exertion and Denies wheezing GI Denies abdominal pain, Denies melena, Denies hematochezia, Denies constipation, Denies diarrhea and Denies loose stools Denies hematuria Musc Denies numbness and Denies tingling Skin/Breast Denies lesions Neuro Denies vertigo, Denies dizziness, Denies numbness and Denies tingling Psych Denies anxiety, Denies depression, Denies homicidal ideation, Denies suicidal ideation and Denies other (substance abuse) Aller/Immun Denies wheezing Physical exam (Primary Care) Vital Signs: Last Vital Signs Pulse 67 08/12/23 16:02 BP 140/96 H 08/12/23 16:02 Pulse Ox 98 08/12/23 16:02 Oxygen Delivery Method Room Air 08/12/23 16:02 BMI result Body Mass Index 27.3 Tobacco/Smoking Status: Tobacco use Status Tobacco use date assessed 08/12/23 08/12/23 16:08 Patient Tobacco Use Status Former Tobacco user 08/12/23 16:02 e-Cigarette/Vaping Use Never Used 08/12/23 16:02 PHQ-9: PHQ-9 Score PHQ-9: Total score 0 08/12/23 16:37 Depression Screening Interpretation: Negative Thrive Assessment: Date of Thrive Assessment Date Thrive assessed 08/12/23 08/12/23 16:08 Currently or been in a relationship where the following occur: I choose not to answer this question Const General: cooperative Nutritional Appearance: well nourished Orientation/consciousness: patient oriented x3 HENMT Head: Yes normal to inspection, Yes normocephalic and Yes atraumatic Ears: TM's normal bilaterally Eyes General: appearance normal, both eyes and all related structures Alignment and Position: alignment normal and position normal Neck Neck: Yes normal visual inspection and Yes no lymphadenopathy Thyroid: Thyroid normal Resp Effort & Inspection: normal respiratory effort Auscultation: clear to auscultation bilaterally Cardio Rate: regular rate Rhythm: regular rhythm Heart sounds: S1 normal heart sound present, S2 normal heart sound present and no murmurs GI Palpation (GI): Soft to palpation and nontender Auscultation: normal bowel sounds Skin Rashes: no rashes Neuro General: patient oriented x3, moves all extremities, no focal motor deficits and deep tendon reflexes 2+ bilaterally Romberg Test: Negative Extrem Right lower extremity: no edema Left lower extremity: no edema Psych Appearance: grossly normal Mental Status: mental status grossly normal Speech and movement: Normal speech and movement present Affect: normal affect Attitude: cooperative Thought process: Normal thought process present Thought content: Normal thought content present Insight: Good insight present (Psych) Judgement: Good judgement present (Psych) Assessment and Plan Assessment & Plan (1) Physical exam: Code(s): Z00.00 - Encounter for general adult medical examination without abnormal findings Orders: Orders Comprehensive [place]. Panel Fast Today Z00.00 - Encounter for general adult medical examination without abnormal findings Lipid Panel Today Z00.00 - Encounter for general adult medical examination without abnormal findings Vitamin D 25-OH Total Today Z00.00 - Encounter for general adult medical examination without abnormal findings Complete Blood Count Auto Diff Today Z00.00 - Encounter for general adult medical examination without abnormal findings TSH reflex Free T4 Today Z00.00 - Encounter for general adult medical examination without abnormal findings UA CC w/rflx Micro + Cult Today Z00.00 - Encounter for general adult medical examination without abnormal findings Coding Level of Care Code Est Pt Prev Care 40-64y(37165) Diagnoses Physical exam Z00.00 Additional Codes VITO-7 Assessment Billing - VITO-7 Assessment Tool: VITO-7 Assessment [id number] ([id number])
[2023-08-12 16:02] VITALS: BP 140/96; PULSE 67; O2SAT 98; BMI 27.3
[2023-08-12 16:52] VITALS: BP 130/84
== END 2023-08-12 17:00 | disposition home or self-care (01) ==
PROVIDERS: Visit Provider Nurse Practitioner Family
DX: Z00.00 Encounter for general adult medical examination without abnormal findings (principal)
CPT/HCPCS: 99396

== ENCOUNTER 2023-08-20 15:54 | Outpatient (REF) | payer OTHER, SELFPAY ==
--- NOTE | ~2023-08-20 | US_ITS ---
EXAMINATION: US PELVIS CLINICAL INFORMATION: Enlarged cervix, last menstrual period October 2022, no prior imaging. Ovarian cystectomy. COMPARISON: None available. TECHNIQUE: Ultrasound of the pelvis is performed using both transabdominal and transvaginal transducers along with Doppler. Transvaginal imaging is performed due to inadequate visualization transabdominally. FINDINGS: The uterus is anteverted and measures 11.9 x 10.0 x 9.2 cm, volume 571.5 mL. Uterine masses characteristic of fibroids, largest 6.7 x 5.8 x 6.0 cm, 5.7 x 3.3 x 4.2 cm, 3.4 x 3.4 x 3.3 cm, and 3.3 x 2.8 x 3.1 cm. No significant free fluid. Visualization of uterine fibroids limited on transabdominal ultrasound images and better characterized on transvaginal ultrasound images. Endometrium not visualized due to uterine fibroids. Left ovary not visualized. Limited visualization due to bowel gas. Right ovary was seen only on transabdominal ultrasound images and measures 8.4 x 6.1 x 8.8 cm, volume 232.9 mL. Right adnexal 7.8 x 5.9 x 7.9 cm complex cyst versus solid mass with heterogeneous echotexture and internal vascularity. Evaluation limited due to bowel gas. This lesion was seen only on transabdominal ultrasound images. This likely represents an ovarian lesion rather than pedunculated fibroid, extraovarian lesion or other adnexal mass. US/US pelvic and transvaginal IMPRESSION: 1. Enlarged fibroid uterus. Largest fibroid 6.7 cm. 2. Endometrium not visualized due to uterine fibroids. 3. Right adnexal 7.9 cm complex cyst versus solid mass with heterogeneous echotexture and internal vascularity. Evaluation limited due to bowel gas. This lesion was seen only on transabdominal ultrasound images. This likely represents an ovarian lesion rather than pedunculated fibroid, extraovarian lesion or other adnexal mass. 4. Gynecologic consultation and possible MRI recommended for further evaluation. This study was presented today, September 13, 2023, for interpretation. Stat results provided at this time as requested by referring provider.
== END 2023-08-20 15:55 | disposition home or self-care (01) ==
LOC: HO.US 15:54
PROVIDERS: PCP Nurse Practitioner Family; Visit Provider Advanced Practice Midwife
DX: N88.8 Other specified noninflammatory disorders of cervix uteri (principal)
CPT/HCPCS: 76830; 76856

== ENCOUNTER 2023-09-17 14:44 | Outpatient (AMB) | payer OTHER, SELFPAY ==
--- NOTE | 2023-09-17 14:52 | A.OFFVIS_ITS ---
Vital Signs 09/17/23 14:53 Height 5 ft 5 in Weight 164 lb BMI 27.3 BP 112/64 Intake Visit Reasons: US follow up Moto Mix Operator: Moto Mix Operator Present Allergies acetaminophen [From Percocet] Adverse Reaction (Mild, Verified 09/17/23 14:53) upset stomach oxycodone [From Percocet] Adverse Reaction (Mild, Verified 09/17/23 14:53) upset stomach Is last menstrual period known: Yes HPI Comments Details: Maria D is here today with her partner Song to discuss her ultrasound results. Previous exam revealed an enlarged pelvic mass. She reports improving her diet and exercises and feeling like her pelvic abdominal area has been improving. She denies any postmenopausal bleeding. [facility], [facility] Medical History (Updated 09/17/23 @ 15:06 by Yamilex Hanson CNM) Ovarian mass Surgical History Hx of ovarian cystectomy Hx of cholecystectomy Hx of colonoscopy Family History Brother Mental health disorder Social History Housing: House Patient Tobacco Use Status: Former Tobacco user e-Cigarette/Vaping Use: Never Used Second Hand Smoke Exposure: No service: No Current occupational status: unemployed Cognitive needs: No Hearing needs: No Vision needs: Yes Female Reproductive History Menstrual Age of Menarche: 12 Review of Systems Const All systems reviewed & are unremarkable except as noted in HPI and below Endo Reports no additional complaints Physical Exam Vital Signs: Last Vital Signs BP 112/64 09/17/23 14:53 BMI result Body Mass Index 27.3 Const General: cooperative, healthy appearing and no acute distress Psych Appearance: well kempt Attitude: cooperative Thought process: Normal thought process present Results Reviewed Results Reviewed: [address] [address] Ultrasound Report Signed Patient: Maria D Dutton MR#: [id number] : 1965 Acct:[id number] Age/Sex: 58 / F ADM Date: 08/20/23 Loc: HO.US Attending Dr: Yamilex Hanson CNM Ordering Physician: Yamilex Hanson CNM Date of Service: 08/20/23 Procedure(s): US pelvic and transvaginal Accession Number(s): [id number] cc: Uriel Mclaughlin CHILD CARE ASSOCIATE-; Yamilex Hanson CNM~ EXAMINATION: US PELVIS CLINICAL INFORMATION: Enlarged cervix, last menstrual period October 2022, no prior imaging. Ovarian cystectomy. COMPARISON: None available. TECHNIQUE: Ultrasound of the pelvis is performed using both transabdominal and transvaginal transducers along with Doppler. Transvaginal imaging is performed due to inadequate visualization transabdominally. FINDINGS: The uterus is anteverted and measures 11.9 x 10.0 x 9.2 cm, volume 571.5 mL. Uterine masses characteristic of fibroids, largest 6.7 x 5.8 x 6.0 cm, 5.7 x 3.3 x 4.2 cm, 3.4 x 3.4 x 3.3 cm, and 3.3 x 2.8 x 3.1 cm. No significant free fluid. Visualization of uterine fibroids limited on transabdominal ultrasound images and better characterized on transvaginal ultrasound images. Endometrium not visualized due to uterine fibroids. Left ovary not visualized. Limited visualization due to bowel gas. Right ovary was seen only on transabdominal ultrasound images and measures 8.4 x 6.1 x 8.8 cm, volume 232.9 mL. Right adnexal 7.8 x 5.9 x 7.9 cm complex cyst versus solid mass with heterogeneous echotexture and internal vascularity. Evaluation limited due to bowel gas. This lesion was seen only on transabdominal ultrasound images. This likely represents an ovarian lesion rather than pedunculated fibroid, extraovarian lesion or other adnexal mass. US/US pelvic and transvaginal IMPRESSION: 1. Enlarged fibroid uterus. Largest fibroid 6.7 cm. 2. Endometrium not visualized due to uterine fibroids. 3. Right adnexal 7.9 cm complex cyst versus solid mass with heterogeneous echotexture and internal vascularity. Evaluation limited due to bowel gas. This lesion was seen only on transabdominal ultrasound images. This likely represents an ovarian lesion rather than pedunculated fibroid, extraovarian lesion or other adnexal mass. 4. Gynecologic consultation and possible MRI recommended for further evaluation. This study was presented today, September 13, 2023, for interpretation. Stat results provided at this time as requested by referring provider. Dictated By: Shy David MD Signed By: <Electronically signed by Shy David MD in OV> 09/13/23 1052 DD/ 1624 TD/TT: Industrial Sociologist: Assessment & Plan Assessment & Plan (1) Ovarian mass: Code(s): N83.8 - Other noninflammatory disorders of ovary, fallopian tube and broad ligament Category: Medical Plan: (2) Pelvic mass: Code(s): R19.00 - Intra-abdominal and pelvic swelling, mass and lump, unspecified site Category: Medical Plan Discussed: Ultrasound findings, with the use of diagrams and pelvic models to describe in detail. Complex ovarian cyst, verses solid mass, enlarged fibroids. Some masses are benign, some can develop into premalignant or malignant tumors. Further monitoring and evaluation is recommended with US, possible CT, or MRI study. If persists, or is indicated (Ca-125, Carbohydrate Antigen 19-9, & Carcinoembryonic Antigen) labs will be ordered and referral to [facility] or general gynecology for MD care for surgical consult. She prefers not to go to [facility] for care, and to be seen elsewhere, she will check in with her health insurance to see what is covered as she thought maybe [facility] would be an option, we discussed going to [facility] or other hospitals in the local area once she decides where she wants to go for her consult. Follow up pending CT results. She agrees to have her lab work done today. All of her questions and concerns were addressed to the best of my ability and shared decision making. She is agreeable to the plan of care. This note is constructed using voice recognition software. While every effort has been made to ensure accuracy, library media specialist errors may have been included. Orders: Orders CA-125 Today N83.299 - Other ovarian cyst, unspecified side, N83.8 - Other noninflammatory disorders of ovary, fallopian tube and broad ligament Carcinoembryonic Antigen Today N83.8 - Other noninflammatory disorders of ovar y, fallopian tube and broad ligament Carbohydrate Antigen 19-9 Today N83.8 - Other noninflammatory disorders of ovary, fallopian tube and broad ligament CT abdomen pelvis wo/w IV con Today N83.8 - Other noninflammatory disorders of ovary, fallopian tube and broad ligament, R19.00 - Intra-abdominal and pelvic swelling, mass and lump, unspecified site Coding Level of Care Code Est Pt Level 3 (48424) Diagnoses Ovarian mass N83.8 Pelvic mass R19.00
[2023-09-17 14:53] VITALS: BP 112/64; BMI 27.3
== END 2023-09-17 16:56 ==
LOC: HO.HWS 14:44
PROVIDERS: PCP Nurse Practitioner Family; Visit Provider Advanced Practice Midwife
DX: N83.8 Other noninflammatory disorders of ovary, fallopian tube and broad ligament (principal); R19.00 Intra-abdominal and pelvic swelling, mass and lump, unspecified site
CPT/HCPCS: 99213

== ENCOUNTER 2023-09-17 14:44 | Outpatient (REF) | payer OTHER, SELFPAY ==
[2023-09-17 15:37] LABS: MANUAL DIFF FLAG NO
[2023-09-17 16:30] LABS: Basophils Percent Auto 0.3 % (0-2); Eosinophils Absolute Auto 0.1 X10*3/uL (0.0-0.4); Eosinophils Percent Auto 0.7 % (0-4); Hematocrit 42.4 % (37.0-47.0); Hemoglobin 14.1 g/dl (12.0-16.0); Imm Gran Abs Auto 0.02 X10*3/uL (0.00-0.03); Imm Gran Pct Auto 0.3 % (0.0-0.4); Lymphocytes Absolute Auto 2.4 X10*3/uL (1.2-4.9); Lymphocytes Percent Auto 31.8 % (20-40); Mean Corpuscular HGB Conc 33.3 g/dl (31.0-35.0); Mean Corpuscular Volume 90.2 fL (80.0-98.0); Mean Platelet Volume 10.4 fL (9.4-12.3); Monocytes Absolute Auto 0.5 X10*3/uL (0.1-1.2); Monocytes Percent Auto 6.6 % (2-11); Neutrophils Absolute Auto 4.6 x10*3/uL (2.0-8.3); Neutrophils Percent Auto 60.3 % (45-73); Platelet Count 284 X10*3/uL (160-400); Red Cell Distribution Width 12.2 % (11.0-16.0); White Blood Count 7.6 X10*3/uL (4.8-10.8)
[2023-09-17 17:02] LABS: Appearance Urine Clear; Color Urine Yellow; Glucose Urine UA Negative (Negative); Leukocyte Esterase Urine Negative (Negative); Nitrite Urine Negative (Negative); Specific Gravity - Urine <= 1.005 (1.005-1.025); UMIC TRIGGER UACC YES; Urine Blood Trace (Negative); Urine Ketones 15 mg/dL (Negative); Urine Protein Negative (Neg-Trace)
[2023-09-17 17:07] LABS: Alanine Aminotransferase 12 U/L (0-31); Albumin Level 4.6 g/dL (3.5-5.0); Alkaline Phosphatase 72 U/L (39-117); Anion Gap 15 (12-20); Aspartate Amino Transferase 17 U/L (5-31); Bilirubin Total 0.5 mg/dL (0.0-1.0); Blood Urea Nitrogen 7 mg/dL (9-16); Calcium 10.6 mg/dL (8.4-10.2); Carbon Dioxide 26 mmol/L (22-29); Chloride 103 mmol/L (96-108); Cholesterol 228 mg/dL (<200); Estimated Glomerular Filt Rate > 60; Glucose Fasting 97 mg/dL (60-99); HDL Cholesterol 66 mg/dL (>40); LDL Cholesterol Calculated 150 mg/dL (<100); Sodium 140 mmol/L (135-145); Total Protein 7.6 g/dL (6.5-8.0); Triglycerides 64 mg/dL (<150)
[2023-09-17 17:08] LABS: Bacteria Urine None Seen (None Seen); Hyaline Casts Urine 0-2 /LPF (0-2); RBC Urine 0-2 /HPF (0-2); Squamous Epithelial Cell Urine 0-2 /HPF (0-2); WBC Urine 0-5 /HPF (0-5)
[2023-09-17 17:22] LABS: TSH reflex Free T4 1.16 uIU/mL (0.32-4.0); Vitamin D 25-OH Total 50.2 ng/mL (>30)
[2023-09-20 14:18] LABS: CA-125 21 U/mL (<35)
[2023-09-20 18:48] LABS: Carbohydrate Antigen 19-9 6 U/mL (<34)
== END 2023-09-17 14:45 | disposition home or self-care (01) ==
LOC: HO.LAB 14:44
PROVIDERS: PCP Nurse Practitioner Family; Visit Provider Advanced Practice Midwife
DX: Z00.00 Encounter for general adult medical examination without abnormal findings (principal); Z13.6 Encounter for screening for cardiovascular disorders; N83.8 Other noninflammatory disorders of ovary, fallopian tube and broad ligament; N83.299 Other ovarian cyst, unspecified side; R19.00 Intra-abdominal and pelvic swelling, mass and lump, unspecified site
CPT/HCPCS: 36415; 80053; 80061; 81001; 81003; 82306; 82378; 84443; 85025; 86301; 86304

== ENCOUNTER 2023-09-20 12:28 | Emergency (ER) | payer OTHER, SELFPAY ==
[2023-09-20 13:15] VITALS: BP 152/77; PULSE 61; RESP 18; TEMP 36.7; O2SAT 96; BMI 28.4
--- NOTE | 2023-09-20 13:15 | ED.GENADULT ---
HPI - General Adult General Chief complaint: General Medical Stated complaint: high bs Time Seen by Provider: 09/20/23 17:00 History of Present Illness ED Provider: Kristie SAAVEDRA narrative: The patient is a generally healthy 58-year-old who fasted for 36 hours couple of days ago. She had a glucometer yesterday her blood sugar was reading in the 50s. Today she was feeling off and checked her blood sugar again and it seemed to still be in the 50s. She ate a bunch of fruit and afterwards she was concerned that the glucometer was reading high. She said she also felt unwell. She came to the emergency room for evaluation. No nausea or vomiting. No fever, sweats, chills. At the time that I spoke to her she was feeling better. Related Data Home Medications ?Medication ?Instructions ?Recorded ?Confirmed cholecalciferol (vitamin D3) 25 25 mcg PO DAILY 02/08/23 08/12/23 mcg (1,000 unit) capsule folic acid 1 mg tablet 1 mg PO DAILY 02/08/23 08/12/23 magnesium citrate 100 mg capsule 200 mg PO BID 02/08/23 08/12/23 omega 6-kdo-hib-fish oil 60 mg-90 1 cap PO DAILY 02/08/23 08/12/23 mg-500 mg capsule (Fish Oil) potassium citrate 99 mg capsule mg PO 02/08/23 08/12/23 vitamin B complex 1 cap PO DAILY 08/04/23 08/12/23 coenzyme Q10 100 mg chewable 600 mg PO DAILY 08/12/23 08/12/23 tablet (Chew Q) Allergies Allergy/AdvReac Type Severity Reaction Status Date / Time acetaminophen [From Percocet] AdvReac Mild upset Verified 09/20/23 13:19 stomach oxycodone [From Percocet] AdvReac Mild upset Verified 09/20/23 13:19 stomach Review of Systems Review of Systems: Yes all other systems are reviewed and are negative PMFSH Past Medical History Medical History (Updated 09/20/23 @ 17:13 by Weston Flowers MD) Ovarian mass Surgical History Hx of ovarian cystectomy Hx of cholecystectomy Hx of colonoscopy Family History Family History Brother Mental health disorder Social History Social History Housing: House Patient Tobacco Use Status: Former Tobacco user e-Cigarette/Vaping Use: Never Used Second Hand Smoke Exposure: No Advance Directives: No Advance Directives Information Provided: No Do you have a plan to hurt others: No Plan service: No Current occupational status: unemployed Cognitive needs: No Hearing needs: No Vision needs: Yes Physical Exam ED Vital Signs: Vital Signs - 24 hr 09/20/23 13:15 Temperature 98.1 F Pulse Rate 61 Respiratory Rate 18 Blood Pressure 152/77 H Pulse Oximetry 96 Oxygen Delivery Method Room Air BMI result Body Mass Index 28.4 Const Other: The patient is awake, alert, pleasant, cooperative. She does not appear in any distress. HENMT Other: Face is symmetrical, mucous membranes moist Eyes Other: Pupils are round equal, conjunctivae clear Neck Other: Moving her neck easily Resp Effort & Inspection: normal respiratory effort Auscultation: clear to auscultation bilaterally Cardio Rate: regular rate Rhythm: regular rhythm Heart sounds: S1 normal heart sound present and S2 normal heart sound present GI Other: Abdomen is soft and nontender Skin Other: Skin is dry and unremarkable Neuro Other: The patient is awake and alert with a normal mental status. Speech clear. Face is symmetrical. She moves her extremities normally. He seems entirely neurologically intact. Extrem Other: No peripheral edema Course Course Course Narrative: RME performed by Donna Eckert PA-C. Patient is a 58 year old assigned female at presenting to the emergency department with concerns of a low blood sugar and not acting like herself. Patient states that she did a long fast and though she has been eating berries now, she has not gotten back to her baseline. Detailed physical exam and review of systems are deferred to the day treatment clinician/art therapist. EKG, labs, and swabs ordered. Patient placed back in the waiting room pending room availability and results. Medical Decision Making Medical Decision Making MDM Narrative: The patient is a 58-year-old who fasted for 36 hours (she took water during the fast). When she entered her fast she felt somewhat weak and apparently she had a glucometer that read a blood sugar in the 50s. Today she still felt unwell and ate a lot of fruits and then she thought that her blood sugar was high. She came to the emergency room. By the time I saw her she seemed to be feeling well. She looks entirely well. Labs are unremarkable. She was reassured that she has done no harm to herself. Perhaps she should speak with her doctor before fasting again. Lab Data 09/20/23 13:27 09/20/23 13:27 Labs: Lab Results 09/20/23 09/20/23 Range/Units 13:27 13:34 WBC 7.6 (4.8-10.8) X10*3/uL RBC 4.74 (4.20-5.50) X10*6/uL Hgb 14.0 (12.0-16.0) g/dl Hct 42.6 (37.0-47.0) % MCV 89.9 (80.0-98.0) fL MCH 29.5 (27.0-33.0) pg MCHC 32.9 (31.0-35.0) g/dl RDW 12.0 (11.0-16.0) % Plt Count 267 (160-400) X10*3/uL MPV 9.8 (9.4-12.3) fL Immature Gran % (Auto) 0.4 (0.0-0.4) % Neut % (Auto) 62.8 (45-73) % Lymph % (Auto) 27.3 (20-40) % [place] % (Auto) 8.0 (2-11) % Eos % (Auto) 1.0 (0-4) % Baso % (Auto) 0.5 (0-2) % Lymph # (Auto) 2.1 (1.2-4.9) X10*3/uL [place] # (Auto) 0.6 (0.1-1.2) X10*3/uL Eos # (Auto) 0.1 (0.0-0.4) X10*3/uL Baso # (Auto) 0.0 (0.0-0.2) X10*3/uL Abs Immat Gran (auto) 0.03 (0.00-0.03) X10*3/uL Absolute Neuts (auto) 4.8 (2.0-8.3) x10*3/uL Absolute Nucleated RBC 0.000 (0.0-0.012) X10*3/uL Nucleated RBC % (auto) 0.0 (0.0-0.2) /100WBC Sodium 142 (135-145) mmol/L Potassium 4.3 (3.3-5.1) mmol/L Chloride 106 (96-108) mmol/L Carbon Dioxide 27 (22-29) mmol/L Anion Gap 13 (12-20) BUN 10 (9-16) mg/dL Creatinine 0.68 (0.5-1.4) mg/dL Estim Creat Clear Calc 83.9 Estimated GFR > 60 Random Glucose 123 H (60-115) mg/dL Calcium 10.6 H (8.4-10.2) mg/dL Magnesium 2.4 (1.6-2.6) mg/dL Total Bilirubin 0.2 (0.0-1.0) mg/dL AST 18 (5-31) U/L ALT 13 (0-31) U/L Alkaline Phosphatase 65 (39-117) U/L Troponin I High Sens 7.1 (<3.5-17.0) ng/L Total Protein 7.4 (6.5-8.0) g/dL Albumin 4.4 (3.5-5.0) g/dL Urine Color Yellow Urine Appearance Clear Urine pH 7.0 (5.0-9.0) Ur Specific [place] <= 1.005 (1.005-1.025) Urine Protein Negative (Neg-Trace) mg/dL Urine Glucose (UA) Negative (Negative) mg/dL Urine Ketones Negative (Negative) mg/dL Urine Blood Negative (Negative) Urine Nitrite Negative (Negative) Ur Leukocyte Esterase Negative (Negative) Influenza Type A (PCR) NEGATIVE (Negative) Influenza Type B (PCR) NEGATIVE (Negative) RSV RNA Qual (PCR) NEGATIVE (Negative) SARS-CoV-2 RNA (RT-PCR) NEGATIVE (Negative) Discharge Plan Discharge Clinical Impression: Lightheadedness Patient Disposition: Home, Self-Care Additional Instructions: Your testing in the emergency department today is reassuring. At this point I think you are clear to eat whatever you feel like eating. I have some suspicion that your glucometer may not have been entirely accurate. Please talk to your regular doctor about fasting if you choose to fast again in the future. Return to the emergency room if significantly worse. Prescriptions: No Action magnesium citrate 100 mg capsule 200 mg PO BID folic acid 1 mg tablet 1 mg PO DAILY cholecalciferol (vitamin D3) 25 mcg (1,000 unit) capsule 25 mcg PO DAILY potassium citrate 99 mg capsule PO omega 7-hro-mhe-fish oil [Fish Oil] 60-90-500 mg capsule 1 cap PO DAILY vitamin B complex Capsule 1 cap PO DAILY Chew Q 100 mg tablet,chewable 600 mg PO DAILY Referrals: Uriel Mclaughlin FNP-BC [Primary Care Provider] - Print Language: Kazakh
--- NOTE | 2023-09-20 13:17 | ECG_ITS ---
Test Reason : WEAKNESS Blood Pressure : / mmHG Vent. Rate : 060 BPM Atrial Rate : 060 BPM P-R Int : 132 ms QRS Dur : 086 ms QT Int : 400 ms P-R-T Axes : 008 003 003 degrees QTc Int : 400 ms Normal sinus rhythm with sinus arrhythmia Nonspecific T wave abnormality Abnormal ECG When compared with ECG of 02-JAN-2021 08:59, No significant change was found Referred By: Donna Eckert Electronically Signed By:STEFANY MOSHER MD
[2023-09-20 13:32] LABS: MANUAL DIFF FLAG NO
[2023-09-20 13:33] LABS: Basophils Percent Auto 0.5 % (0-2); Eosinophils Absolute Auto 0.1 X10*3/uL (0.0-0.4); Hematocrit 42.6 % (37.0-47.0); Imm Gran Abs Auto 0.03 X10*3/uL (0.00-0.03); Imm Gran Pct Auto 0.4 % (0.0-0.4); Lymphocytes Absolute Auto 2.1 X10*3/uL (1.2-4.9); Lymphocytes Percent Auto 27.3 % (20-40); Mean Corpuscular HGB Conc 32.9 g/dl (31.0-35.0); Mean Corpuscular Hemoglobin 29.5 pg (27.0-33.0); Mean Corpuscular Volume 89.9 fL (80.0-98.0); Mean Platelet Volume 9.8 fL (9.4-12.3); Monocytes Absolute Auto 0.6 X10*3/uL (0.1-1.2); Neutrophils Absolute Auto 4.8 x10*3/uL (2.0-8.3); Neutrophils Percent Auto 62.8 % (45-73); Platelet Count 267 X10*3/uL (160-400); Red Blood Count 4.74 X10*6/uL (4.20-5.50); White Blood Count 7.6 X10*3/uL (4.8-10.8)
[2023-09-20 13:45] LABS: Appearance Urine Clear; Color Urine Yellow; Glucose Urine UA Negative (Negative); Leukocyte Esterase Urine Negative (Negative); Nitrite Urine Negative (Negative); Specific Gravity - Urine <= 1.005 (1.005-1.025); Urine Blood Negative (Negative); Urine Ketones Negative (Negative); Urine Protein Negative (Neg-Trace)
[2023-09-20 13:47] LABS: Alanine Aminotransferase 13 U/L (0-31); Albumin Level 4.4 g/dL (3.5-5.0); Alkaline Phosphatase 65 U/L (39-117); Anion Gap 13 (12-20); Aspartate Amino Transferase 18 U/L (5-31); Bilirubin Total 0.2 mg/dL (0.0-1.0); Blood Urea Nitrogen 10 mg/dL (9-16); Calcium 10.6 mg/dL (8.4-10.2); Carbon Dioxide 27 mmol/L (22-29); Chloride 106 mmol/L (96-108); Creatinine Clr Calc Pharmacy 83.9; Estimated Glomerular Filt Rate > 60; Glucose Random 123 mg/dL (60-115); Magnesium 2.4 mg/dL (1.6-2.6); Potassium 4.3 mmol/L (3.3-5.1); Sodium 142 mmol/L (135-145); Total Protein 7.4 g/dL (6.5-8.0)
[2023-09-20 13:53] LABS: Troponin-I High Sensitivity 7.1 ng/L (<3.5-17.0)
[2023-09-20 14:09] LABS: Influenza A PCR NEGATIVE (Negative); Influenza B PCR NEGATIVE (Negative); Resp Syncy Virus RNA Qual PCR NEGATIVE (Negative); SARS COV2 PCR INHOUSE NEGATIVE (Negative)
[2023-09-20 18:43] VITALS: BP 000/00; PULSE 0; RESP 0; TEMP -17.7; TEMP 0; O2SAT 0
== END 2023-09-20 18:45 | disposition home or self-care (01) ==
PROVIDERS: Physician Assistant Medical; Emergency Provider Emergency Medicine; PCP Nurse Practitioner Family
DX: R42 Dizziness and giddiness (principal); I49.8 Other specified cardiac arrhythmias; Z03.818 Encounter for observation for suspected exposure to other biological agents ruled out; Z79.899 Other long term (current) drug therapy
CPT/HCPCS: 0241U; 80053; 81003; 83735; 84484; 85025; 93005; 99283

== ENCOUNTER → 2023-09-20 13:17 | Outpatient (BNV) | payer OTHER, SELFPAY | PROVIDERS: Emergency Provider Emergency Medicine; PCP Nurse Practitioner Family; Visit Provider Internal Medicine Cardiovascular Disease | DX: R53.1 Weakness (principal); R94.31 Abnormal electrocardiogram [ECG] [EKG] | CPT/HCPCS: 93010 ==

== ENCOUNTER 2023-10-06 12:58 | Outpatient (REF) | payer OTHER, SELFPAY ==
--- NOTE | ~2023-10-06 | CT_ITS ---
EXAMINATION: CT ABDOMEN AND PELVIS WITHOUT AND WITH CONTRAST CLINICAL INFORMATION: Intra-abdominal and pelvic swelling COMPARISON: Ultrasound pelvis from 08/20/2023, ultrasound renal from 08/27/2019. TECHNIQUE: Multidetector volumetric imaging was performed of the abdomen and pelvis before and after the IV administration of 100 mL of Omnipaque 300 intravenous contrast. Sagittal and coronal reformatted images were obtained on the technologist's workstation. This CT examination was performed using dose optimization techniques as appropriate, variously including the following: *Automated exposure control *Adjustment of mA and/or kV according to patient size (this includes techniques or standardized protocols for targeted exams where dose is matched to indication/reason for exam; i.e. extremities or head) *Use of iterative reconstruction technique DLP: 1001 160 mGy-cm FINDINGS: LUNG BASES: No pneumothorax. No large pleural effusion. LIVER, GALLBLADDER, AND BILIARY TREE: Liver is enlarged measuring 19.5 cm. No focal hepatic lesion or biliary ductal dilatation is present. The gallbladder is surgically absent. PANCREAS: Unremarkable SPLEEN: Unremarkable 1.2 cm splenule. ADRENAL GLANDS: Unremarkable KIDNEYS AND URETERS: Right-sided nephrolithiasis measuring up to 1.1 cm and the interpolar/upper pole region. Mild right-sided hydronephrosis. Multiple left-sided renal calculi are noted largest measuring up to 2 mm with mild left-sided hydroureteronephrosis. Bilateral renal hypodense foci demonstrating fluid attenuation, statistically representing cysts, not requiring follow-up. BLADDER: Urinary bladder is well-distended measuring 15 cm and the craniocaudal dimension. GASTROINTESTINAL TRACT: Small hiatal hernia. The small and large bowel are unremarkable. The appendix is not definitively visualized.. ABDOMINAL WALL: No significant hernia is appreciated. LYMPH NODES: No enlarged lymph nodes process criteria. VASCULAR: Normal aorta is nonaneurysmal. PELVIC VISCERA: Anteverted and enlarged leiomyomatous uterus the largest in the right uterine fundus measuring approximately 7.9 cm with punctate calcifications within its body. Redemonstrated right adnexal/ovarian complex cystic focus with multiple septations measuring approximately 7.2 x 6.3 x 8.0 cm. OSSEOUS STRUCTURES: Unremarkable CT/CT abdomen pelvis wo/w IV con IMPRESSION: 1. Anteverted and enlarged leiomyomatous uterus the largest in the right uterine fundus measuring approximately 7.9 cm with punctate calcifications within its body. 2. Redemonstrated right adnexal/ovarian complex cystic focus with multiple septations measuring approximately 7.2 x 6.3 x 8.0 cm. Findings are concerning for low-grade cystic neoplasm. Recommend either a gynecological consult and follow-up ultrasonography in 3-6 months, or unenhanced and IV contrast enhanced MRI of the pelvis for improved characterization. 3. Bilateral nephrolithiasis with mild bilateral hydroureteronephrosis. Urinary bladder is well-distended measuring 15 cm and the craniocaudal dimension. 4. Liver is enlarged measuring 19.5 cm. 5. Status post cholecystectomy. 6. Small hiatal hernia. Electronically signed by: Mayank Hughes MD 11/05/2023 05:06 PM EDT
[2023-10-06] MEDS: iohexoL 350 MG/ML 100 ML INFUS..BTL IV (13:55)
== END 2023-10-06 12:59 | disposition home or self-care (01) ==
LOC: HO.CT 12:58
PROVIDERS: Visit Provider Advanced Practice Midwife
DX: R19.00 Intra-abdominal and pelvic swelling, mass and lump, unspecified site (principal); N83.8 Other noninflammatory disorders of ovary, fallopian tube and broad ligament
CPT/HCPCS: 74178; Q9967

== ENCOUNTER 2023-11-17 14:54 | Outpatient (AMB) | payer OTHER, SELFPAY ==
--- NOTE | 2023-11-17 14:56 | MHC.OFFVIS ---
Vital Signs 11/17/23 14:57 BP 120/80 Intake Visit Reasons: CT Results Contract Negotiation Specialist: Contract Negotiation Specialist Present Accompanied by: Spouse Allergies acetaminophen [From Percocet] Adverse Reaction (Mild, Verified 11/17/23 14:57) upset stomach oxycodone [From Percocet] Adverse Reaction (Mild, Verified 11/17/23 14:57) upset stomach Is last menstrual period known: Yes HPI Comments Details: Patient is here today for a follow up on her CT results. She is accompanied by her . She reports eating a healthier diet and feels much better overall with decreased pelvic discomfort. She is upset due to the length of time that the report took to be read, additionally with her appointment follow up rescheduling. She informed me that she has scheduled an appointment at [facility] on December 13 2023 with a seat nailer provider for care there. COUNTS INCLUDE 234 BEDS AT THE [facility] Medical History (Updated 11/17/23 @ 15:31 by Yamilex Hanson CNM) Ovarian mass Surgical History Hx of ovarian cystectomy Hx of cholecystectomy Hx of colonoscopy Family History Brother Mental health disorder Social History Housing: House Patient Tobacco Use Status: Former Tobacco user e-Cigarette/Vaping Use: Never Used Second Hand Smoke Exposure: No service: No Current occupational status: unemployed Cognitive needs: No Hearing needs: No Vision needs: Yes Female Reproductive History Menstrual Age of Menarche: 12 Review of Systems Const All systems reviewed & are unremarkable except as noted in HPI and below Endo Reports no additional complaints Physical Exam Vital Signs: Last Vital Signs BP 120/80 11/17/23 14:57 Const General: cooperative, healthy appearing and no acute distress Psych Appearance: well kempt Attitude: cooperative Thought process: Normal thought process present Results Reviewed Results Reviewed: [address] [address] [address] Scan Report Signed Patient: Maria D Dutton MR#: [id number] : 1965 Acct:[id number] Age/Sex: 58 / F ADM Date: 10/06/23 Loc: HO.CT Attending Dr: Yamilex Hanson CNM Ordering Physician: Yamilex Hanson CNM Date of Service: 10/06/23 Procedure(s): CT abdomen pelvis wo/w IV con Accession Number(s): [id number] cc: Yamilex Hanson CNM~ EXAMINATION: CT ABDOMEN AND PELVIS WITHOUT AND WITH CONTRAST CLINICAL INFORMATION: Intra-abdominal and pelvic swelling COMPARISON: Ultrasound pelvis from 08/20/2023, ultrasound renal from 08/27/2019. TECHNIQUE: Multidetector volumetric imaging was performed of the abdomen and pelvis before and after the IV administration of 100 mL of Omnipaque 300 intravenous contrast. Sagittal and coronal reformatted images were obtained on the technologist's workstation. This CT examination was performed using dose optimization techniques as appropriate, variously including the following: *Automated exposure control *Adjustment of mA and/or kV according to patient size (this includes techniques or standardized protocols for targeted exams where dose is matched to indication/reason for exam; i.e. extremities or head) *Use of iterative reconstruction technique DLP: 1001 160 mGy-cm FINDINGS: LUNG BASES: No pneumothorax. No large pleural effusion. LIVER, GALLBLADDER, AND BILIARY TREE: Liver is enlarged measuring 19.5 cm. No focal hepatic lesion or biliary ductal dilatation is present. The gallbladder is surgically absent. PANCREAS: Unremarkable SPLEEN: Unremarkable 1.2 cm splenule. ADRENAL GLANDS: Unremarkable KIDNEYS AND URETERS: Right-sided nephrolithiasis measuring up to 1.1 cm and the interpolar/upper pole region. Mild right-sided hydronephrosis. Multiple left-sided renal calculi are noted largest measuring up to 2 mm with mild left-sided hydroureteronephrosis. Bilateral renal hypodense foci demonstrating fluid attenuation, statistically representing cysts, not requiring follow-up. BLADDER: Urinary bladder is well-distended measuring 15 cm and the craniocaudal dimension. GASTROINTESTINAL TRACT: Small hiatal hernia. The small and large bowel are unremarkable. The appendix is not definitively visualized.. ABDOMINAL WALL: No significant hernia is appreciated. LYMPH NODES: No enlarged lymph nodes process criteria. VASCULAR: Normal aorta is nonaneurysmal. PELVIC VISCERA: Anteverted and enlarged leiomyomatous uterus the largest in the right uterine fundus measuring approximately 7.9 cm with punctate calcifications within its body. Redemonstrated right adnexal/ovarian complex cystic focus with multiple septations measuring approximately 7.2 x 6.3 x 8.0 cm. OSSEOUS STRUCTURES: Unremarkable CT/CT abdomen pelvis wo/w IV con IMPRESSION: 1. Anteverted and enlarged leiomyomatous uterus the largest in the right uterine fundus measuring approximately 7.9 cm with punctate calcifications within its body. 2. Redemonstrated right adnexal/ovarian complex cystic focus with multiple septations measuring approximately 7.2 x 6.3 x 8.0 cm. Findings are concerning for low-grade cystic neoplasm. Recommend either a gynecological consult and follow-up ultrasonography in 3-6 months, or unenhanced and IV contrast enhanced MRI of the pelvis for improved characterization. 3. Bilateral nephrolithiasis with mild bilateral hydroureteronephrosis. Urinary bladder is well-distended measuring 15 cm and the craniocaudal dimension. 4. Liver is enlarged measuring 19.5 cm. 5. Status post cholecystectomy. 6. Small hiatal hernia. Electronically signed by: Mayank Huhges MD 11/05/2023 05:06 PM EDT Dictated By: Mayank Hughes MD Signed By: <Electronically signed by Mayank Hughes MD in OV> 11/05/23 1706 DD/ 1320 TD/TT: 10/06/23 1356 Train Master: Assessment & Plan Assessment & Plan (1) Fibroid: Code(s): D21.9 - Benign neoplasm of connective and other soft tissue, unspecified Category: Medical (2) Ovarian mass: Code(s): N83.8 - Other noninflammatory disorders of ovary, fallopian tube and broad ligament Category: Medical (3) Encounter to discuss test results: Code(s): Z71.2 - Person consulting for explanation of examination or test findings Plan Discussed: Recommend either a gynecological consult and follow-up ultrasonography in 3-6 months, or unenhanced and IV contrast enhanced MRI of the pelvis for improved characterization. CT results reviewed, I advised an immediate consult with GyneOnc specialist for evaluation of the large complex ovarian cyst, who would manage her care, she accepts, additionally advised her to follow up with her urology provider due to the history of her renal calculi and current findings, she accepts a referral. Sign a release of records to [facility]. All of her questions and concerns were addressed to the best of my ability and shared decision making. She is agreeable to the plan of care. This note is constructed using voice recognition software. While every effort has been made to ensure accuracy, stock patcher errors may have been included. Orders: Referrals Gynecologic Oncology Referral D21.9 - Benign neoplasm of connective and other soft tissue, unspecified Urology Referral N13.30 - Unspecified hydronephrosis, N20.0 - Calculus of kidney Coding Level of Care Code Est Pt Level 3 (28059) Diagnoses Fibroid D21.9 Ovarian mass N83.8 Encounter to discuss test results Z71.2
[2023-11-17 14:57] VITALS: BP 120/80
== END 2023-11-17 15:38 | disposition home or self-care (01) ==
LOC: HO.HWS 14:54
PROVIDERS: PCP Nurse Practitioner Family; Visit Provider Advanced Practice Midwife
DX: D21.9 Benign neoplasm of connective and other soft tissue, unspecified (principal); N83.8 Other noninflammatory disorders of ovary, fallopian tube and broad ligament; Z71.2 Person consulting for explanation of examination or test findings
CPT/HCPCS: 99213

== ENCOUNTER → 2023-11-17 14:54 | Outpatient (BNVA) | payer OTHER, SELFPAY | PROVIDERS: PCP Nurse Practitioner Family; Visit Provider Advanced Practice Midwife ==

== ENCOUNTER 2023-11-22 15:30 | Outpatient (REF) | payer OTHER, SELFPAY ==
--- NOTE | ~2023-11-22 | MM_ITS ---
EXAMINATION: MM SCREENING DIGITAL BREAST TOMOSYNTHESIS, BILATERAL CLINICAL INFORMATION: Screening. Asymptomatic. COMPARISON: Mammography: Comparison is made with available priors TECHNIQUE: Digital breast mammography with tomosynthesis is performed in both the craniocaudal and mediolateral oblique views along with computer-aided detection (CAD). FINDINGS: The breasts are heterogeneously dense, which may obscure small masses (ACR BI-RADS breast composition Category c). There are no significant masses, abnormal calcifications, or other abnormalities. MM/MM tomosynthesis screening BI IMPRESSION: No mammographic evidence of malignancy. ASSESSMENT: BI-RADS BI-RADS 1 - Negative RECOMMENDATION: Routine annual mammography screening. 1 year F/U This examination should not preclude the clinical evaluation of a suspicious palpable abnormality. This patient's information was entered into a reminder system with a target due date for their next mammogram. Electronically signed by: Brittaney Oconnor DO 12/03/2023 10:50 AM EDT
== END 2023-11-22 15:31 | disposition home or self-care (01) ==
LOC: HO.MAMMO 15:30
PROVIDERS: PCP Nurse Practitioner Family; Visit Provider Nurse Practitioner Family
DX: Z12.31 Encounter for screening mammogram for malignant neoplasm of breast (principal)
CPT/HCPCS: 77063; 77067

== ENCOUNTER → 2023-11-22 15:30 | Outpatient (BNV) | payer OTHER, SELFPAY | PROVIDERS: PCP Nurse Practitioner Family; Visit Provider Internal Medicine | DX: Z12.31 Encounter for screening mammogram for malignant neoplasm of breast (principal) | CPT/HCPCS: 77063; 77067 ==

== ENCOUNTER 2023-12-09 10:23 | Outpatient (REF) | payer OTHER, SELFPAY ==
[2023-12-09 13:19] LABS: Appearance Urine Clear; Color Urine Yellow; Glucose Urine UA Negative (Negative); Leukocyte Esterase Urine Negative (Negative); Nitrite Urine Negative (Negative); PH 6.5 (5.0-9.0); Specific Gravity - Urine <= 1.005 (1.005-1.025); Urine Blood Negative (Negative); Urine Ketones Negative (Negative); Urine Protein Negative (Neg-Trace)
[2023-12-09 13:41] LABS: Alanine Aminotransferase 11 U/L (0-31); Albumin Level 4.3 g/dL (3.5-5.0); Alkaline Phosphatase 73 U/L (39-117); Anion Gap 12 (12-20); Aspartate Amino Transferase 14 U/L (5-31); Bilirubin Total 0.6 mg/dL (0.0-1.0); Blood Urea Nitrogen 10 mg/dL (9-16); Calcium 10.1 mg/dL (8.4-10.2); Carbon Dioxide 27 mmol/L (22-29); Chloride 106 mmol/L (96-108); Cholesterol 185 mg/dL (<200); Estimated Glomerular Filt Rate > 60; Glucose Fasting 91 mg/dL (60-99); HDL Cholesterol 60 mg/dL (>40); LDL Cholesterol Calculated 114 mg/dL (<100); Potassium 4.2 mmol/L (3.3-5.1); Sodium 141 mmol/L (135-145); Total Protein 7.3 g/dL (6.5-8.0); Triglycerides 58 mg/dL (<150)
[2023-12-09 13:52] LABS: Parathyroid Hormone Intact 58.4 pg/mL (8.7-77.1)
[2023-12-13 23:07] LABS: Calcium, Ionized 5.3 mg/dL (4.7-5.5)
== END 2023-12-09 10:24 | disposition home or self-care (01) ==
LOC: HO.HMGCLDS 10:23
PROVIDERS: PCP Nurse Practitioner Family; Visit Provider Nurse Practitioner Family
DX: Z00.00 Encounter for general adult medical examination without abnormal findings (principal); E83.52 Hypercalcemia; E78.5 Hyperlipidemia, unspecified
CPT/HCPCS: 36415; 80053; 80061; 81003; 82330; 83970

== ENCOUNTER 2023-12-22 15:17 | Outpatient (AMB) | payer OTHER, SELFPAY ==
--- NOTE | 2023-12-22 15:17 | A.OFFVIS_ITS ---
Vital Signs 12/22/23 15:18 Height 5 ft 5 in Weight 143 lb 4.807 oz BMI 23.8 BP 114/84 Blood Pressure Location Lt brachial Position Sitting Pulse 64 Pulse Source Pulse Oximeter Pulse Oximetry (%) 99 Oxygen Delivery Method Room Air Intake Visit Reasons: Concerns regarding procedure 01/10. Intake Note: Maria D presents in office today for a scheduled pre op visit. Pt has concerns regarding her upcoming procedure with regard to biopsies and anesthesia. Pt is not comfortable with having these administered because they do not feel that there is enough scientific evidence behind the methods of the procedure. Pt also reports having ovarian cystectomy next week. Electrical Troubleshooter Required: No Accompanied by: Family/Other Allergies acetaminophen [From Percocet] Adverse Reaction (Mild, Verified 12/22/23 15:20) upset stomach oxycodone [From Percocet] Adverse Reaction (Mild, Verified 12/22/23 15:20) upset stomach HPI HPI Concerns regarding procedure 01/10.: Details: LAST VISIT 09/2022 Screening for colon cancer Patient denies any GI, cardiac or respiratory symptoms.? Denies any issues with anesthesia in the past.? Denies any history of sleep apnea.? No history infectious diseases in the past or present.? Not on any anticoagulation therapy.? No family or personal history of colon cancer or polyps.? Patient denies melena, hematochezia, unintentional weight loss or ribbon like stools.? Discussed at length the pre-procedure,? prep, diet & medications as well as what to expect prior, during and after the procedure.?? Stressed the importance of good bowel prep. ?Recommended the use of Vaseline or Calmoseptine OTC & baby wipes with bowel movements to promote comfort.? ?Patient verbalizes understanding and agrees to plan of care.? She was given the opportunity to ask questions and all questions answered.? We will see her after the procedure.? Plan Medications New bisacodyl (Dulcolax (bisacodyl)) take 2 tabs at noon the day before your colonoscopy 10 mg (2 x 5 mg) PO ONCE 1 day 2 tabs 0RF Z12.11 - Encounter for screening for malignant neoplasm of colon docusate sodium 100 mg PO DAILY 30 caps 3RF K59.00 - Constipation, unspecified polyethylene glycol 3350 (Miralax) As directed by gastroenterology department at [facility] 238 grams PO ONCE 238 grams 0RF Z12.11 - Encounter for screening for malignant neoplasm of colon TODAY'S VISIT Patient is here today for requested visit. Patient has colonoscopy scheduled in beginning of January, however patient reports that she will be going for surgery. Patient has oophorectomy and possible hysterectomy. Patient was found to have large complex cyst on her right ovary. Patient would like to postpone colonoscopy for now. Currently she states that she is feeling better. Less constipation. Patient lost intentionally almost 20 lb since August of this year. Patient is eating more vegetables and fruits. Patient is also doing smoothies. Last bloating and discomfort. Patient denies any melena, hematochezia. No family history of colon cancer. Patient denies dyspepsia, dysphagia or odyno phagia. [facility] Medical History Ovarian mass, right Ovarian mass Surgical History Hx of ovarian cystectomy Hx of cholecystectomy Hx of colonoscopy Family History Brother Mental health disorder Social History Housing: House Patient Tobacco Use Status: Former Tobacco user e-Cigarette/Vaping Use: Never Used Second Hand Smoke Exposure: No service: No Current occupational status: unemployed Cognitive needs: No Hearing needs: No Vision needs: Yes Female Reproductive History Menstrual Age of Menarche: 12 Review of Systems Const Denies weight gain and Denies weight loss ENT Reports no additional complaints, Denies dysphagia and Denies odynophagia Card Reports no additional complaints Resp Reports no additional complaints GI Denies abdominal pain, Denies belching, Denies melena, Denies bloating, Denies change in bowel habits, Denies dysphagia, Denies excessive flatus, Denies dyspepsia, Denies heartburn, Denies diarrhea, Denies loose stools, Denies nausea, Denies odynophagia and Denies vomiting Musc Reports no additional complaints Neuro Reports no additional complaints Psych Reports no additional complaints Endo Reports no additional complaints Physical Exam Vital Signs: Last Vital Signs Pulse 64 12/22/23 15:18 BP 114/84 12/22/23 15:18 Pulse Ox 99 12/22/23 15:18 Oxygen Delivery Method Room Air 12/22/23 15:18 BMI result Body Mass Index 23.8 Const General: healthy appearing, no acute distress and well developed Nutritional Appearance: well nourished Orientation/consciousness: patient oriented x3 Resp Effort & Inspection: normal respiratory effort, able to speak in complete sentences, no tracheal deviation and symmetric chest movement Auscultation: clear to auscultation bilaterally Cardio Rate: regular rate GI Inspection: Yes normal to inspection and No distended Palpation (GI): Soft to palpation, not firm, nontender and No hepatosplenomegaly present Auscultation: normal bowel sounds General: Yes no CVA tenderness Back/Spine/Pelvis Back: no CVA tenderness Skin General skin exam: elasticity normal, turgor normal and dry skin Neuro General: patient oriented x3 Psych Appearance: grossly normal Mental Status: mental status grossly normal Assessment & Plan Assessment & Plan (1) Ovarian mass: Code(s): N83.8 - Other noninflammatory disorders of ovary, fallopian tube and broad ligament Category: Medical (2) Screening for colon cancer: Code(s): Z12.11 - Encounter for screening for malignant neoplasm of colon Category: Medical Plan Patient wants to postpone her procedure. She is going next week for oophorectomy due to large cyst found. Patient does not want to go under anesthesia again within the next 2 weeks or so. Patient would like to recuperate and wait for colonoscopy till then. Currently patient is not really reporting any abdominal pain, denies melena, hematochezia, unintentional weight loss or ribbon like stools. Patient will return in 6-7 months or so. She will call our office if she will have any GI concerning symptoms. Coding Level of Care Code Est Pt Level 3 (52470) Diagnoses Ovarian mass N83.8 Screening for colon cancer Z12.11 Time Spent (min) 25 Comment 15 minutes spent with patient and additional 10 minutes spent reviewing her records
[2023-12-22 15:18] VITALS: BP 114/84; PULSE 64; O2SAT 99; BMI 23.8
== END 2023-12-22 16:02 | disposition home or self-care (01) ==
PROVIDERS: PCP Nurse Practitioner Family; Visit Provider Nurse Practitioner Family
DX: N83.8 Other noninflammatory disorders of ovary, fallopian tube and broad ligament (principal); Z12.11 Encounter for screening for malignant neoplasm of colon
CPT/HCPCS: 99213

== ENCOUNTER → 2023-12-22 15:17 | Outpatient (BNVA) | payer OTHER, SELFPAY | PROVIDERS: PCP Nurse Practitioner Family; Visit Provider Nurse Practitioner Family ==